=== PATIENT | male | born 1975 | race Caucasian/White ===

== ENCOUNTER 2017-09-11 23:27 | Emergency (ER) | payer OTHER ==
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
[2017-09-12 00:14] VITALS: O2SAT 96
[2017-09-12 01:13] VITALS: BP 119/87; PULSE 117
== END 2017-09-12 01:10 | disposition home or self-care (01) ==
LOC: ED 23:27
DX: F10.129 Alcohol abuse with intoxication, unspecified (principal)
CPT/HCPCS: 36415; 80307; 99283; G0480